=== PATIENT | male | born 1945 ===

== ENCOUNTER 2019-04-03 14:21 | Inpatient (IN) | payer MEDICARE ==
[~2019-04-03] VITALS: Ht 180.3 cm; Wt 89.8 kg
[2019-04-03] MEDS ORDERED: DEXTROSE 50% 50 ML DISP.SYRIN IV PRN (20:00)
[2019-04-03] MEDS ORDERED: POLYVINYL ALCOHOL OPHT DROPS 15 ML BOTTLE EACHEYE PRN (20:00)
[2019-04-03] MEDS ORDERED: ACET-2154 PO (20:33)
[2019-04-03] MEDS ORDERED: ASPI-869 PO (20:33)
[2019-04-03] MEDS ORDERED: ATOR80TA PO (20:33)
[2019-04-03] MEDS ORDERED: DOCU-141 PO (20:33)
[2019-04-03] MEDS ORDERED: GABA-532 PO (20:33)
[2019-04-03] MEDS ORDERED: MAGN400O6 PO (20:33)
[2019-04-03] MEDS ORDERED: FAMO-132 PO (20:33)
[2019-04-03] MEDS ORDERED: METO25TA6 PO (20:33)
[2019-04-03 20:35] VITALS: BP 138/100
[2019-04-03] MEDS ORDERED: INSULIN GLARGINE,HUM 300 UNITS/3 ML CARTRIDGE SQ SCH (21:00)
[2019-04-03] MEDS: INSULIN REGULAR, HUMAN 300 UNIT/3 ML VIAL SQ PRN (22:02)
[2019-04-03] MEDS: BLOOD SUGAR DIAGNOSTIC 1 EACH STRIP VI SCH (22:03)
--- NOTE | 2019-04-04 00:04 | NUR ---
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 AAOx3-4 able to answer questions appropriately. VSS. Skin intact. #20 gauge heplock on left forearm. Dr Grey ([facility]) aware of patient's admission as well Dr Jenkins. Fall precautions maintained. Call akers within reach. Siderails up for safety. Incontinent of bowel and bladder. Kept clean and dry. No BM noted this shift. Accucheck 289 with coverage given, patient also on Lantus insulin. Right facial droop noted with speech slightly slurred. Will monitor patient.
[2019-04-04] MEDS: OXYCODONE/APAP 5-325 MG TABLET PO PRN ×3 (01:44→20:32)
[2019-04-04] MEDS: LEVALBUTEROL HCL NEB 0.63 MG/3 ML NEBU NEB SCH ×5 (01:49→18:54)
--- NOTE | 2019-04-04 02:23 | NUR ---
patient very confused and disoriented. Screaming on and off. Explained to patient that he is here in the hospital for rehab. But patient keeps on yelling and saying he is going to work. Asked for pain med, Percocet 1tab given as order. Will monitor patient.
[2019-04-04 05:53] VITALS: BP 141/96
[2019-04-04] MEDS: BLOOD SUGAR DIAGNOSTIC 1 EACH STRIP VI SCH ×4 (06:36→20:33)
[2019-04-04] MEDS ORDERED: MAGNESIUM HYDROXIDE 30 ML LIQUID UDC PO PRN (07:15)
[2019-04-04] MEDS ORDERED: DOCUSATE SODIUM 100 MG CAPSULE PO PRN (07:15)
[2019-04-04] MEDS ORDERED: POLYVINYL ALCOHOL OPHT DROPS 15 ML BOTTLE EACHEYE PRN (07:27)
[2019-04-04 07:52] VITALS: BP 174/93
[2019-04-04] MEDS: INSULIN REGULAR, HUMAN 300 UNIT/3 ML VIAL SQ PRN ×3 (08:08→17:25)
[2019-04-04] MEDS ORDERED: METO-356 PO (08:39)
[2019-04-04] MEDS ORDERED: METOPROLOL TARTRATE 25 MG TABLET PO SCH (09:00)
[2019-04-04] MEDS: FAMOTIDINE 20 MG TABLET PO SCH (09:04)
[2019-04-04] MEDS: GABAPENTIN 100 MG CAPSULE PO SCH ×3 (09:04→17:26)
[2019-04-04] MEDS: ASPIRIN EC 325 MG TABLET.DR PO SCH (09:04)
[2019-04-04] MEDS: METOPROLOL SUCCINATE XL 25 MG TAB.SR.24H PO SCH ×2 (09:05→20:33)
[2019-04-04] MEDS: LISINOPRIL 10 MG TABLET PO SCH ×2 (13:59→20:33)
[2019-04-04 15:56] VITALS: BP 149/87
[2019-04-04] MEDS ORDERED: DEXTROSE 50% 50 ML DISP.SYRIN IV PRN (16:15)
--- NOTE | 2019-04-04 19:30 | NUR ---
Patient alert and oriented x 2-3. Speaks with a slur and has a right sided facial droop. C/O pain in lower back, will administer pain medication when able. IV in left hand. Will D/C due to patient no longer needing medication through site. New insulin lantus medication ordered, will administer. Call light and frequently used items within reach. Side rails up bilaterally for safety. Will continue to monitor.
--- NOTE | 2019-04-04 19:46 | NUR ---
Received patient in bed, Pt. A&O x4, able to express self with some speech difficulty noted. In No acute distress. Pt. on O2 NC at 2lpm with O2 saturation of 96%. NO complains of pain at this time. Noted with wheezing during shift, on routine breathing Tx as ordered. Patient noted with elevated BP and BS during shift and informed MD. Pt. also visited by Dr. Nowak and with an order to change Insulin to Moderate scale. Patient also placed on Lisinopril 10mg PO Q 12 hrs as ordered for HTN. Carried out order. Last B/P of 144/82. Patient refused thicken liquids, tolerated thin liquid during shift. No complains of pain at this time. Needs attended, safety measure in place and will continue with care. Endorsed to next shift and will continue with care.
[2019-04-04 19:53] VITALS: BP 125/91
[2019-04-04] MEDS: ATORVASTATIN 40 MG TABLET PO SCH (20:32)
[2019-04-04] MEDS: INSULIN REGULAR, HUMAN 300 UNITS/3 ML VIAL SQ PRN (20:34)
[2019-04-04] MEDS: INSULIN GLARGINE,HUM 300 UNITS/3 ML CARTRIDGE SQ SCH (20:42)
[2019-04-05] MEDS: LEVALBUTEROL HCL NEB 0.63 MG/3 ML NEBU NEB SCH ×4 (01:44→19:14)
[2019-04-05] MEDS: BLOOD SUGAR DIAGNOSTIC 1 EACH STRIP VI SCH ×4 (06:32→21:37)
[2019-04-05 06:40] VITALS: BP 109/60
[2019-04-05 07:28] LABS: CARBON DIOXIDE 24 mmol/L (21-32); CHLORIDE 99 mmol/L (98-107); CREATININE 2.1 mg/dL (0.6-1.3); GLUCOSE 177 mg/dL (74-106); MAGNESIUM 2.1 mg/dL (1.8-2.4); PHOSPHOROUS 4.5 mg/dL (2.5-4.9); POTASSIUM 4.4 mmol/L (3.5-5.1); UREA NITROGEN, BLOOD 35 mg/dL (7-18)
[2019-04-05 07:39] LABS: BASOPHILS # (AUTO) 0.1 K/uL (0.0-8.0); BASOPHILS % (AUTO) 0.4 % (0.0-2.0); EOSINOPHILS # (AUTO) 0.2 K/uL (0.0-0.7); EOSINOPHILS % (AUTO) 1.8 % (0.0-7.0); HEMATOCRIT 42.1 % (36.7-47.1); HEMOGLOBIN 13.7 g/dL (12.5-16.3); LYMPHOCYTES # (AUTO) 2.8 K/uL (20.0-40.0); LYMPHOCYTES % (AUTO) 21.9 % (20.5-51.5); MEAN CORPUSCULAR HEMOGLOBIN 31.7 uug (23.8-33.4); MEAN CORPUSCULAR HGB CONC 32 g/dL (32.5-36.3); MEAN CORPUSCULAR VOLUME 97.7 fL (73.0-96.2); MONOCYTES # (AUTO) 1.3 K/uL (2.0-10.0); MONOCYTES % (AUTO) 9.9 % (0.0-11.0); NEUTROPHILS # (AUTO) 8.5 K/uL (1.8-8.9); PLATELET COUNT (AUTO) 238 K/uL (152-348); RED BLOOD CELL COUNT(AUTO) 4.31 MIL/uL (4.06-5.63); WHITE BLOOD COUNT (AUTO) 12.9 K/uL (3.6-10.2)
--- NOTE | 2019-04-05 07:45 | NUR ---
Received patient awake in bed. AAOx3. In no acute distress. Audible wheezing noted. Routine breathing treatments ordered. Receiving 2L o2 via NC. Denies pain at this time. Safety measures implemented. Call light within reach. Will continue to monitor.
[2019-04-05] MEDS: INSULIN REGULAR, HUMAN 300 UNIT/3 ML VIAL SQ PRN ×3 (08:13→17:17)
[2019-04-05] MEDS: FAMOTIDINE 20 MG TABLET PO SCH (08:14)
[2019-04-05] MEDS: LISINOPRIL 10 MG TABLET PO SCH ×2 (08:14→21:39)
[2019-04-05] MEDS: ASPIRIN EC 325 MG TABLET.DR PO SCH (08:15)
[2019-04-05] MEDS: GABAPENTIN 100 MG CAPSULE PO SCH ×3 (08:16→17:15)
[2019-04-05] MEDS: METOPROLOL SUCCINATE XL 25 MG TAB.SR.24H PO SCH (08:51)
[2019-04-05 08:58] VITALS: BP 111/69
--- NOTE | 2019-04-05 16:07 | NUR ---
INTERDISCIPLINARY TEAM CONFERENCE
--- NOTE | 2019-04-05 18:21 | NUR ---
Patient compliant with care and medication. In no acute distress. All needs attended. Will endorse accordingly.
--- NOTE | 2019-04-05 19:50 | NUR ---
PATIENT LYING ON BED, WATCHING TV. NO DISCOMFORT NOTED. USING O2 VIA NC @ 2LPM . WILL CONTINUE TO MONITOR.
[2019-04-05 20:35] LABS: *BILIRUBIN,URIN NEGATIVE (NEGATIVE); *CLARITY,URINE CLEAR (CLEAR); *COLOR,URINE YELLOW (YELLOW); *KETONES,URINE NEGATIVE (NEGATIVE); *UROBILINOGEN,URINE 0.2 E.U./dl (NORMAL); LEUKOCYTE ESTERASE ,URINE NEGATIVE (NEGATIVE); NITRITE, URINE NEGATIVE (NEGATIVE); PH,URINE 5.5 (5.0-8.0); UGLUCOSE TRACE (NEGATIVE)
[2019-04-05 20:43] VITALS: BP 124/62
[2019-04-05 20:47] VITALS: BP 113/60
[2019-04-05 20:59] LABS: *BLOOD, URINE TRACE (NEGATIVE)
[2019-04-05 21:00] LABS: MUCUS,URINE FEW /LPF (0-FEW); RBC,URINE 0-3 /HPF (0-3); SQUAMOUS EPITHELIAL CELL,UR FEW /HPF (NONE SEEN); WBC,URINE 0-3 /HPF (0-3)
[2019-04-05] MEDS: CLONAZEPAM 0.5 MG TABLET PO SCH (21:34)
[2019-04-05] MEDS: ATORVASTATIN 40 MG TABLET PO SCH (21:35)
[2019-04-05] MEDS: INSULIN GLARGINE,HUM 300 UNITS/3 ML CARTRIDGE SQ SCH (21:37)
[2019-04-05] MEDS: INSULIN REGULAR, HUMAN 300 UNITS/3 ML VIAL SQ PRN (21:39)
[2019-04-06] MEDS: LEVALBUTEROL HCL NEB 0.63 MG/3 ML NEBU NEB SCH ×4 (01:30→20:03)
[2019-04-06 05:30] VITALS: BP 121/68
[2019-04-06] MEDS: BLOOD SUGAR DIAGNOSTIC 1 EACH STRIP VI SCH ×4 (06:44→20:26)
--- NOTE | 2019-04-06 06:45 | NUR ---
Patient sleeping on and off during the shift . Using o2 @ 2lpm via nc. No c/o pain or any discomfort .BS check done wit the result 168. kept the patient clean and dry
[2019-04-06 07:42] VITALS: BP 117/66
[2019-04-06] MEDS: INSULIN REGULAR, HUMAN 300 UNIT/3 ML VIAL SQ PRN ×3 (08:21→17:28)
[2019-04-06] MEDS: GABAPENTIN 100 MG CAPSULE PO SCH ×3 (08:25→17:23)
[2019-04-06] MEDS: ASPIRIN EC 325 MG TABLET.DR PO SCH (08:25)
[2019-04-06] MEDS: FAMOTIDINE 20 MG TABLET PO SCH (08:25)
[2019-04-06] MEDS: CLONAZEPAM 0.5 MG TABLET PO SCH ×3 (08:25→17:23)
[2019-04-06] MEDS: METOPROLOL SUCCINATE XL 25 MG TAB.SR.24H PO SCH (08:26)
[2019-04-06 09:33] LABS: THYROID STIMULATING HORMONE 0.607 mIU/mL (0.358-3.740)
--- NOTE | 2019-04-06 10:30 | NUR ---
INDIVIDUALIZE PLAN OF CARE
[2019-04-06] MEDS: LISINOPRIL 10 MG TABLET PO SCH ×2 (10:52→20:25)
[2019-04-06 15:59] VITALS: BP 112/67
--- NOTE | 2019-04-06 19:30 | NUR ---
Patient alert and oriented x 2-3. Speaks with a slur and has a right sided facial droop. New insulin Lantus medication order of 22 units, will administer. Call light and frequently used items within reach. Side rails up bilaterally for safety. Will continue to monitor.
[2019-04-06] MEDS: INSULIN GLARGINE,HUM 300 UNITS/3 ML CARTRIDGE SQ SCH (20:23)
[2019-04-06 20:24] VITALS: BP 103/60
[2019-04-06] MEDS: INSULIN REGULAR, HUMAN 300 UNITS/3 ML VIAL SQ PRN (20:24)
[2019-04-06] MEDS: ATORVASTATIN 40 MG TABLET PO SCH (20:26)
[2019-04-07] MEDS: LEVALBUTEROL HCL NEB 0.63 MG/3 ML NEBU NEB SCH ×4 (01:14→19:11)
[2019-04-07 05:21] VITALS: BP 125/62
[2019-04-07] MEDS: BLOOD SUGAR DIAGNOSTIC 1 EACH STRIP VI SCH ×4 (06:41→20:41)
[2019-04-07 08:00] VITALS: BP 113/66
[2019-04-07] MEDS: FAMOTIDINE 20 MG TABLET PO SCH (08:14)
[2019-04-07] MEDS: CLONAZEPAM 0.5 MG TABLET PO SCH ×3 (08:15→17:06)
[2019-04-07] MEDS: GABAPENTIN 100 MG CAPSULE PO SCH ×3 (08:15→17:06)
[2019-04-07] MEDS: ASPIRIN EC 325 MG TABLET.DR PO SCH (08:15)
[2019-04-07] MEDS: LISINOPRIL 10 MG TABLET PO SCH ×2 (08:16→20:37)
[2019-04-07] MEDS: METOPROLOL SUCCINATE XL 25 MG TAB.SR.24H PO SCH (08:16)
[2019-04-07] MEDS: INSULIN REGULAR, HUMAN 300 UNIT/3 ML VIAL SQ PRN ×3 (08:17→17:13)
--- NOTE | 2019-04-07 08:55 | NUR ---
Patient noted resting in bed, took all AM medications, 2 units of insulin given for blood sugar of 155, no changes in mental status, no complaints of pain at this time, no signs of distress noted, call light in reach, bed locked and in lowest position, all needs met at this time
[2019-04-07 16:00] VITALS: BP 119/62
--- NOTE | 2019-04-07 19:30 | NUR ---
Patient alert and oriented x 2-3. Speaks with a slur and has a right sided facial droop. No C/O pain or SOB at this time. Call light and frequently used items within reach. Side rails up bilaterally for safety. Will continue to monitor.
[2019-04-07] MEDS: INSULIN GLARGINE,HUM 300 UNITS/3 ML CARTRIDGE SQ SCH (20:28)
[2019-04-07] MEDS: ATORVASTATIN 40 MG TABLET PO SCH (20:36)
[2019-04-07] MEDS: INSULIN REGULAR, HUMAN 300 UNITS/3 ML VIAL SQ PRN (20:36)
[2019-04-07 20:54] VITALS: BP 125/78
[2019-04-08] MEDS: LEVALBUTEROL HCL NEB 0.63 MG/3 ML NEBU NEB SCH ×4 (01:55→18:50)
[2019-04-08 04:27] VITALS: BP 119/71
[2019-04-08] MEDS: BLOOD SUGAR DIAGNOSTIC 1 EACH STRIP VI SCH ×4 (06:30→20:32)
[2019-04-08 07:41] LABS: CARBON DIOXIDE 22 mmol/L (21-32); CHLORIDE 102 mmol/L (98-107); CREATININE 1.9 mg/dL (0.6-1.3); GLUCOSE 206 mg/dL (74-106); MAGNESIUM 2.6 mg/dL (1.8-2.4); POTASSIUM 4.9 mmol/L (3.5-5.1); UREA NITROGEN, BLOOD 48 mg/dL (7-18)
[2019-04-08 07:56] LABS: BASOPHILS # (AUTO) 0.1 K/uL (0.0-8.0); EOSINOPHILS # (AUTO) 0.2 K/uL (0.0-0.7)
[2019-04-08 08:07] LABS: BASOPHILS % (AUTO) 0.5 % (0.0-2.0); EOSINOPHILS % (AUTO) 1.5 % (0.0-7.0); LYMPHOCYTES # (AUTO) 2.4 K/uL (20.0-40.0); LYMPHOCYTES % (AUTO) 16.5 % (20.5-51.5); MEAN CORPUSCULAR HEMOGLOBIN 31.7 uug (23.8-33.4); MEAN CORPUSCULAR HGB CONC 32 g/dL (32.5-36.3); MONOCYTES # (AUTO) 1.6 K/uL (2.0-10.0); MONOCYTES % (AUTO) 10.7 % (0.0-11.0); NEUTROPHILS # (AUTO) 10.5 K/uL (1.8-8.9); NEUTROPHILS % (AUTO) 70.8 % (38.5-71.5); RED BLOOD CELL COUNT(AUTO) 4.08 MIL/uL (4.06-5.63); WHITE BLOOD COUNT (AUTO) 14.8 K/uL (3.6-10.2)
[2019-04-08 08:09] LABS: PLATELET COUNT (AUTO) 326 K/uL (152-348)
[2019-04-08] MEDS: FAMOTIDINE 20 MG TABLET PO SCH (08:54)
[2019-04-08] MEDS: METOPROLOL SUCCINATE XL 25 MG TAB.SR.24H PO SCH (08:55)
[2019-04-08 08:56] VITALS: BP 137/68
[2019-04-08] MEDS: LISINOPRIL 10 MG TABLET PO SCH (08:56)
[2019-04-08] MEDS: GABAPENTIN 100 MG CAPSULE PO SCH ×3 (08:56→16:55)
[2019-04-08] MEDS: ASPIRIN EC 325 MG TABLET.DR PO SCH (08:56)
[2019-04-08] MEDS: CLONAZEPAM 0.5 MG TABLET PO SCH (08:57)
[2019-04-08] MEDS: INSULIN REGULAR, HUMAN 300 UNIT/3 ML VIAL SQ PRN ×3 (09:02→17:19)
[2019-04-08 16:00] VITALS: BP 112/71
--- NOTE | 2019-04-08 17:50 | NUR ---
Pt received this morning sitting up in bed. Pt AAOx2-3, with slurred speech and right sided facial droop. Pt able to make needs known. Pt denies pain and no acute distress, or SOB. VS stable, HR elevated 129, likely due to coughing episodes. Pt O2 sat at 100% on 2L NC. Pt compliant with routine medications and cooperative with therapies as offered. All comfort and safety needs met. Pt transferred to bedside commode and back to bed without voiding or BM, max assist x4. Pt teaching provided on using bedpan for next BM urge. Bed in locked and lowest position, with side rails up x3, and bed alarm on. Call light and personal items placed within reach. Will continue to monitor and endorse to oncoming mobile paramedical examiner.
[2019-04-08 20:15] VITALS: BP 119/67
[2019-04-08] MEDS: ATORVASTATIN 40 MG TABLET PO SCH (20:24)
[2019-04-08] MEDS: INSULIN GLARGINE,HUM 300 UNITS/3 ML CARTRIDGE SQ SCH (20:33)
[2019-04-08] MEDS: INSULIN REGULAR, HUMAN 300 UNITS/3 ML VIAL SQ PRN (20:37)
[2019-04-08] MEDS: HYDROCODONE/APAP 5-325MG TABLET PO PRN (20:46)
[2019-04-09] MEDS ORDERED: QUETIAPINE FUMARATE 25 MG TABLET PO ONE
[2019-04-09] MEDS ORDERED: GUAIFENESIN SUGAR FREE 100 MG/5 ML UDC PO PRN (00:15)
[2019-04-09] MEDS: LEVALBUTEROL HCL NEB 0.63 MG/3 ML NEBU NEB SCH ×4 (01:30→19:21)
--- NOTE | 2019-04-09 01:53 | NUR ---
Pt refused HHN tx at this time. No distress noted. Nurse Maude ibarra.
[2019-04-09 05:15] VITALS: BP 135/75
[2019-04-09] MEDS: GUAIFENESIN SUGAR FREE 100 MG/5 ML UDC PO PRN ×3 (05:34→21:29)
--- NOTE | 2019-04-09 05:35 | NUR ---
PATIENT AWAKE IN BED. NON-PRODUCTIVE COUGH NOTED. PATIENT GIVEN ROBITUSSIN SUGAR-FREE 5ML PO PRN FOR COUGH. DENIES PAIN OR DISCOMFORT. SLEPT AT INTERVALS. BED ALARM ON. CALL LIGHT IN REACH. ALL NEEDS ATTENDED. WILL CONTINUE TO MONITOR AND ASSESS,
[2019-04-09] MEDS: BLOOD SUGAR DIAGNOSTIC 1 EACH STRIP VI SCH ×4 (06:38→21:27)
[2019-04-09 06:57] LABS: BASOPHILS # (AUTO) 0.1 K/uL (0.0-8.0); BASOPHILS % (AUTO) 0.5 % (0.0-2.0); EOSINOPHILS # (AUTO) 0.3 K/uL (0.0-0.7); HEMATOCRIT 39.6 % (36.7-47.1); HEMOGLOBIN 12.9 g/dL (12.5-16.3); LYMPHOCYTES % (AUTO) 15.7 % (20.5-51.5); MEAN CORPUSCULAR HGB CONC 33 g/dL (32.5-36.3); MEAN CORPUSCULAR VOLUME 97.8 fL (73.0-96.2); MONOCYTES # (AUTO) 1.4 K/uL (2.0-10.0); MONOCYTES % (AUTO) 10.8 % (0.0-11.0); NEUTROPHILS # (AUTO) 9.2 K/uL (1.8-8.9); PLATELET COUNT (AUTO) 332 K/uL (152-348); RED BLOOD CELL COUNT(AUTO) 4.05 MIL/uL (4.06-5.63)
[2019-04-09 06:58] LABS: ALANINE AMINOTRANSFERASE 34 U/L (16-63); ALKALINE PHOSPHATASE 144 U/L (50-136); ASPARTATE AMINOTRANSFERASE 40 U/L (15-37); BILIRUBIN,TOTAL 0.6 mg/dL (0.2-1.0); CARBON DIOXIDE 27 mmol/L (21-32); CHLORIDE 101 mmol/L (98-107); GLUCOSE 207 mg/dL (74-106); MAGNESIUM 2.4 mg/dL (1.8-2.4); PHOSPHOROUS 3.1 mg/dL (2.5-4.9); POTASSIUM 4.9 mmol/L (3.5-5.1); TOTAL PROTEIN, SERUM 7.6 g/dL (6.4-8.2); UREA NITROGEN, BLOOD 41 mg/dL (7-18)
[2019-04-09 07:52] VITALS: BP 127/81
[2019-04-09] MEDS: ASPIRIN EC 325 MG TABLET.DR PO SCH (08:37)
[2019-04-09] MEDS: FAMOTIDINE 20 MG TABLET PO SCH (08:37)
[2019-04-09] MEDS: VALSARTAN 160 MG TABLET PO SCH (08:38)
[2019-04-09] MEDS: GABAPENTIN 100 MG CAPSULE PO SCH ×3 (08:38→16:56)
[2019-04-09] MEDS: METOPROLOL SUCCINATE XL 25 MG TAB.SR.24H PO SCH (08:39)
[2019-04-09] MEDS: INSULIN REGULAR, HUMAN 300 UNIT/3 ML VIAL SQ PRN ×3 (08:45→17:43)
[2019-04-09 15:44] VITALS: BP 152/91
--- NOTE | 2019-04-09 18:59 | NUR ---
Pt received this morning, assessed. No acute distress, pain, or SOB noted. Pt is able to make needs known with slurred speech. Cough medicine administered per PRN orders. Swallow study completed. Pt seen by , will f/u. VSS, Pt 99% on RA. Pt slept in intervals throughout the day. Personal items and call light placed within reach, repositioned for comfort. Will continue to monitor and endorse.
[2019-04-09 19:44] VITALS: BP 138/79
[2019-04-09] MEDS: ATORVASTATIN 40 MG TABLET PO SCH (20:55)
[2019-04-09] MEDS: INSULIN GLARGINE,HUM 300 UNITS/3 ML CARTRIDGE SQ SCH (21:24)
[2019-04-09] MEDS: INSULIN REGULAR, HUMAN 300 UNITS/3 ML VIAL SQ PRN (21:25)
[2019-04-10] MEDS: LEVALBUTEROL HCL NEB 0.63 MG/3 ML NEBU NEB SCH ×4 (01:04→20:03)
[2019-04-10 04:52] VITALS: BP 134/84
[2019-04-10] MEDS: HYDROCODONE/APAP 5-325MG TABLET PO PRN ×3 (05:32→21:23)
[2019-04-10] MEDS: BLOOD SUGAR DIAGNOSTIC 1 EACH STRIP VI SCH ×4 (06:37→20:52)
[2019-04-10 08:00] VITALS: BP 123/73
[2019-04-10] MEDS: ASPIRIN EC 325 MG TABLET.DR PO SCH (08:40)
[2019-04-10] MEDS: FAMOTIDINE 20 MG TABLET PO SCH (08:40)
[2019-04-10] MEDS: GABAPENTIN 100 MG CAPSULE PO SCH ×3 (08:40→17:09)
[2019-04-10] MEDS: METOPROLOL SUCCINATE XL 25 MG TAB.SR.24H PO SCH (08:41)
[2019-04-10] MEDS: VALSARTAN 160 MG TABLET PO SCH (08:41)
[2019-04-10] MEDS: INSULIN REGULAR, HUMAN 300 UNIT/3 ML VIAL SQ PRN ×3 (08:46→17:21)
--- NOTE | 2019-04-10 09:56 | NUR ---
Received patient awake and alert and oriented x 3 in bed. No s/s acute distress notes. On RA with SpO2 of 97%, no SOB. Incontinent of B&B. Kept clean and dry at all times. Safety and comfort provided at all times. Call light within reached and will continue to monitor. All due medications administered as ordered and tolerated well with no ASE. No s/sx of hypo/hyperglycemia. On aspiration precaution, NTL at bedside. Continue plan of care. Will continue to monitor.
[2019-04-10 15:59] VITALS: BP 122/82
[2019-04-10 20:12] VITALS: BP 126/68
[2019-04-10] MEDS: ATORVASTATIN 40 MG TABLET PO SCH (20:52)
[2019-04-10] MEDS: INSULIN GLARGINE,HUM 300 UNITS/3 ML CARTRIDGE SQ SCH (20:53)
[2019-04-11] MEDS: LEVALBUTEROL HCL NEB 0.63 MG/3 ML NEBU NEB SCH ×4 (01:25→20:01)
[2019-04-11 04:36] VITALS: BP 138/76
[2019-04-11] MEDS: BLOOD SUGAR DIAGNOSTIC 1 EACH STRIP VI SCH ×4 (07:37→21:09)
[2019-04-11 07:44] VITALS: BP 138/83
[2019-04-11] MEDS: HYDROCODONE/APAP 5-325MG TABLET PO PRN ×2 (08:07→14:57)
[2019-04-11] MEDS: FAMOTIDINE 20 MG TABLET PO SCH (08:08)
[2019-04-11] MEDS: VALSARTAN 160 MG TABLET PO SCH (08:08)
[2019-04-11] MEDS: GABAPENTIN 100 MG CAPSULE PO SCH ×3 (08:09→17:17)
[2019-04-11] MEDS: METOPROLOL SUCCINATE XL 25 MG TAB.SR.24H PO SCH (08:09)
[2019-04-11] MEDS: ASPIRIN EC 325 MG TABLET.DR PO SCH (08:10)
[2019-04-11] MEDS: INSULIN REGULAR, HUMAN 300 UNIT/3 ML VIAL SQ PRN ×3 (08:22→17:21)
--- NOTE | 2019-04-11 11:40 | NUR ---
SBAR report received this morning. Pt resting in bed, breathing Tx provided by RT. Pt compliant with medications, insulin coverage 6 units for BS of 212, and cooperative with ST as offered. Pain 7/10 reported resolved with PRN pain medication administered per MD orders. Pt seen by MD, no new orders. Daughter visited at bedside shortly. Pt assisted to use urinal. Partial linen change, repositioned for comfort. Bed in locked and lowest position with side rails up x3 for safety, bed alarm on, personal items and call light placed within reach. Will continue to monitor.
[2019-04-11] MEDS: GUAIFENESIN SUGAR FREE 100 MG/5 ML UDC PO PRN ×2 (14:55→21:07)
[2019-04-11 16:00] VITALS: BP 105/57
[2019-04-11 19:46] VITALS: BP 117/67
[2019-04-11] MEDS: ATORVASTATIN 40 MG TABLET PO SCH (21:07)
[2019-04-11] MEDS: INSULIN GLARGINE,HUM 300 UNITS/3 ML CARTRIDGE SQ SCH (21:13)
[2019-04-12] MEDS: LEVALBUTEROL HCL NEB 0.63 MG/3 ML NEBU NEB SCH ×4 (00:32→19:14)
--- NOTE | 2019-04-12 02:22 | NUR ---
No change in Pt status. VSS. BS 112, no coverage required, scheduled Lantus administered as ordered. Pt able to make needs known. Pt compliant with routine medications. Cough medication administered per PRN orders. Call light and belongings placed within reach. Bed in locked, lowest position, with side rails up x2, and bed alarm on. All comfort needs attended to. Will continue to monitor for safety.
[2019-04-12] MEDS: GUAIFENESIN SUGAR FREE 100 MG/5 ML UDC PO PRN ×2 (04:07→20:19)
[2019-04-12] MEDS: ACETAMINOPHEN 325 MG TABLET PO PRN (04:12)
[2019-04-12 04:19] VITALS: BP 111/66
[2019-04-12] MEDS: BLOOD SUGAR DIAGNOSTIC 1 EACH STRIP VI SCH ×4 (06:58→20:25)
[2019-04-12 07:08] LABS: BASOPHILS # (AUTO) 0.1 K/uL (0.0-8.0); BASOPHILS % (AUTO) 0.5 % (0.0-2.0); EOSINOPHILS # (AUTO) 0.2 K/uL (0.0-0.7); HEMATOCRIT 37.4 % (36.7-47.1); HEMOGLOBIN 12.5 g/dL (12.5-16.3); LYMPHOCYTES # (AUTO) 2.2 K/uL (20.0-40.0); LYMPHOCYTES % (AUTO) 12.6 % (20.5-51.5); MEAN CORPUSCULAR HEMOGLOBIN 32.4 uug (23.8-33.4); MEAN CORPUSCULAR HGB CONC 34 g/dL (32.5-36.3); MEAN CORPUSCULAR VOLUME 96.5 fL (73.0-96.2); MONOCYTES # (AUTO) 1.2 K/uL (2.0-10.0); MONOCYTES % (AUTO) 6.9 % (0.0-11.0); NEUTROPHILS # (AUTO) 13.5 K/uL (1.8-8.9); PLATELET COUNT (AUTO) 403 K/uL (152-348); RED BLOOD CELL COUNT(AUTO) 3.87 MIL/uL (4.06-5.63)
[2019-04-12 07:15] LABS: ALANINE AMINOTRANSFERASE 29 U/L (16-63); ALKALINE PHOSPHATASE 149 U/L (50-136); ASPARTATE AMINOTRANSFERASE 31 U/L (15-37); BILIRUBIN,TOTAL 0.6 mg/dL (0.2-1.0); CARBON DIOXIDE 27 mmol/L (21-32); CHLORIDE 100 mmol/L (98-107); GLUCOSE 141 mg/dL (74-106); MAGNESIUM 2.2 mg/dL (1.8-2.4); PHOSPHOROUS 3.4 mg/dL (2.5-4.9); POTASSIUM 4.8 mmol/L (3.5-5.1); TOTAL PROTEIN, SERUM 7.5 g/dL (6.4-8.2); UREA NITROGEN, BLOOD 39 mg/dL (7-18)
[2019-04-12 07:21] LABS: WHITE BLOOD COUNT (AUTO) 17.1 K/uL (3.6-10.2)
[2019-04-12 07:50] VITALS: BP 97/65
[2019-04-12] MEDS: METOPROLOL SUCCINATE XL 25 MG TAB.SR.24H PO SCH (09:00)
[2019-04-12] MEDS: VALSARTAN 160 MG TABLET PO SCH (09:00)
[2019-04-12] MEDS: GABAPENTIN 100 MG CAPSULE PO SCH ×3 (09:54→17:06)
[2019-04-12] MEDS: ASPIRIN EC 325 MG TABLET.DR PO SCH (09:56)
[2019-04-12] MEDS: FAMOTIDINE 20 MG TABLET PO SCH (09:56)
[2019-04-12] MEDS: INSULIN REGULAR, HUMAN 300 UNIT/3 ML VIAL SQ PRN ×2 (12:46→17:19)
--- NOTE | 2019-04-12 14:40 | NUR ---
INTERDISCIPLINARY TEAM CONFERENCE
[2019-04-12 16:37] VITALS: BP 123/71
--- NOTE | 2019-04-12 20:00 | NUR ---
Patient A&Ox4, No acute distress; VS taken and stable. On accu checks as ordered. Pt. noted with WBC of 17.1. Dr. Hollins ordered Zithromax 250mg PO QD x 5 days[address] Placed ordered, endorsed to next shift. Needs met, safety measures in place, call light left at bed side and will continue with care.
[2019-04-12] MEDS: ATORVASTATIN 40 MG TABLET PO SCH (20:21)
[2019-04-12] MEDS: HYDROCODONE/APAP 5-325MG TABLET PO PRN (20:21)
[2019-04-12] MEDS: INSULIN REGULAR, HUMAN 300 UNITS/3 ML VIAL SQ PRN (20:27)
[2019-04-12] MEDS: INSULIN GLARGINE,HUM 300 UNITS/3 ML CARTRIDGE SQ SCH (20:30)
[2019-04-12] MEDS: AZITHROMYCIN 250 MG TABLET PO SCH (21:03)
[2019-04-12 21:39] VITALS: BP 115/73
[2019-04-13] MEDS: LEVALBUTEROL HCL NEB 0.63 MG/3 ML NEBU NEB SCH ×4 (01:56→18:27)
--- NOTE | 2019-04-13 04:31 | NUR ---
awake alert and oriented x4 needs attended. VSS kept comfortable. tolerated po meds well. Patient started on Zithromax 250mg given as ordered. No ill effects noted. [place] 1 tab given for back pain. Coughing on and off Robitussin given. Will monitor patient. Fall precautions maintained. Siderails up for safety. Voiding freely. No acute distress noted.
[2019-04-13 05:12] VITALS: BP 135/60
[2019-04-13] MEDS: BLOOD SUGAR DIAGNOSTIC 1 EACH STRIP VI SCH ×4 (06:32→21:08)
[2019-04-13] MEDS: HYDROCODONE/APAP 5-325MG TABLET PO PRN ×3 (06:37→22:11)
[2019-04-13 07:04] LABS: BASOPHILS # (AUTO) 0.1 K/uL (0.0-8.0); BASOPHILS % (AUTO) 0.6 % (0.0-2.0); EOSINOPHILS # (AUTO) 0.1 K/uL (0.0-0.7); HEMATOCRIT 37.5 % (36.7-47.1); HEMOGLOBIN 12.4 g/dL (12.5-16.3); LYMPHOCYTES # (AUTO) 1.9 K/uL (20.0-40.0); LYMPHOCYTES % (AUTO) 12.7 % (20.5-51.5); MEAN CORPUSCULAR HEMOGLOBIN 32.2 uug (23.8-33.4); MEAN CORPUSCULAR HGB CONC 33 g/dL (32.5-36.3); MEAN CORPUSCULAR VOLUME 97.8 fL (73.0-96.2); MONOCYTES # (AUTO) 1.3 K/uL (2.0-10.0); MONOCYTES % (AUTO) 8.9 % (0.0-11.0); NEUTROPHILS # (AUTO) 11.5 K/uL (1.8-8.9); NEUTROPHILS % (AUTO) 76.8 % (38.5-71.5); PLATELET COUNT (AUTO) 412 K/uL (152-348); RED BLOOD CELL COUNT(AUTO) 3.83 MIL/uL (4.06-5.63)
[2019-04-13 07:18] LABS: ALANINE AMINOTRANSFERASE 36 U/L (16-63); ALKALINE PHOSPHATASE 185 U/L (50-136); ASPARTATE AMINOTRANSFERASE 48 U/L (15-37); BILIRUBIN,TOTAL 0.5 mg/dL (0.2-1.0); CARBON DIOXIDE 26 mmol/L (21-32); CHLORIDE 95 mmol/L (98-107); CREATININE 2.1 mg/dL (0.6-1.3); GLUCOSE 223 mg/dL (74-106); MAGNESIUM 2.3 mg/dL (1.8-2.4); PHOSPHOROUS 3.2 mg/dL (2.5-4.9); POTASSIUM 5.5 mmol/L (3.5-5.1); TOTAL PROTEIN, SERUM 7.8 g/dL (6.4-8.2); UREA NITROGEN, BLOOD 37 mg/dL (7-18)
[2019-04-13 07:49] VITALS: BP 113/72
[2019-04-13] MEDS: INSULIN REGULAR, HUMAN 300 UNIT/3 ML VIAL SQ PRN ×2 (08:46→11:42)
[2019-04-13] MEDS: ASPIRIN EC 325 MG TABLET.DR PO SCH (08:47)
[2019-04-13] MEDS: GABAPENTIN 100 MG CAPSULE PO SCH ×3 (08:47→17:15)
[2019-04-13] MEDS: AZITHROMYCIN 250 MG TABLET PO SCH (08:47)
[2019-04-13] MEDS: METOPROLOL SUCCINATE XL 25 MG TAB.SR.24H PO SCH (08:48)
[2019-04-13] MEDS: FAMOTIDINE 20 MG TABLET PO SCH (08:49)
[2019-04-13] MEDS ORDERED: VALSARTAN 160 MG TABLET PO SCH (09:00)
[2019-04-13] MEDS: ACETAMINOPHEN 325 MG TABLET PO PRN (09:13)
[2019-04-13] MEDS ORDERED: SODIUM POLYSTYRENE SULFONATE 15 G/60 ML LIQUID UDC PO ONE (11:00)
--- NOTE | 2019-04-13 12:40 | NUR ---
Left message with paperhanger contractor provider for Ya Grey MD as patient family member requests to speak with provider prior to chest x-ray. Enrike Loo RN
--- NOTE | 2019-04-13 13:21 | NUR ---
Verbal order from Doctor Que to cancel chest x-ray. [place] Room Worker notified Rian in xray user does not have privileges to cancel order. Enrike Loo RN
[2019-04-13 15:38] VITALS: BP 109/56
--- NOTE | 2019-04-13 17:35 | NUR ---
Patient able to verbalize more sentences, however, words are not always in the correct order. The patient is seen working out on hand bike and leg bike in physical therapy. He is able to move his right arm with help of his the left arm. The patient may benefit from an overhead trapeze at some point. The patient has a non productive moist cough. He is being treated for the cough with nebulizers and by mouth antibiotics. The patient requests for assist with repositioning. Retrieval Specialist and DIGITAL RECRUITER assist patient to reposition as requested by family and patient. The patient has even unlabored breathing. Patient denies complaint of pain. Handoff report to night JOSUÉ. Enrike Loo RN
[2019-04-13 20:37] VITALS: BP 134/70
[2019-04-13] MEDS: INSULIN GLARGINE,HUM 300 UNITS/3 ML CARTRIDGE SQ SCH (21:12)
[2019-04-13] MEDS: INSULIN REGULAR, HUMAN 300 UNITS/3 ML VIAL SQ PRN (21:12)
[2019-04-13] MEDS: ATORVASTATIN 40 MG TABLET PO SCH (21:14)
[2019-04-13] MEDS: GUAIFENESIN SUGAR FREE 100 MG/5 ML UDC PO PRN (21:24)
--- NOTE | 2019-04-14 00:54 | NUR ---
unable to go home, requested to stay overnight for tonight, signed Hospital Visitor Extended Stay Agreement and agreed to abide the rules.
[2019-04-14] MEDS: LEVALBUTEROL HCL NEB 0.63 MG/3 ML NEBU NEB SCH ×4 (01:18→20:30)
[2019-04-14] MEDS: GUAIFENESIN SUGAR FREE 100 MG/5 ML UDC PO PRN ×2 (01:57→09:10)
[2019-04-14 05:20] VITALS: BP 124/72
[2019-04-14] MEDS: BLOOD SUGAR DIAGNOSTIC 1 EACH STRIP VI SCH ×4 (06:31→20:42)
--- NOTE | 2019-04-14 06:38 | NUR ---
Received patient in bed. AAO x3. Not in acute distress or SOB. Able to make needs known. On room air. Complained of headache, rated pain 6/10 in numeric scale. Narco 5-325 mg given and effective. Pain assessed and reassessed after pain medication. All due medication given and well tolerated. Accucheck @ 2100 BS: 200 covered by 3 units insulin based on sliding scale, Accucheck @ 0630 BS: 195. Had productive cough, Robitussin 5 ml administered. Physical assessment done. All needs attended promptly. Fall prevention observed. Safety measures maintained. Bed in low and lock position, alarm on, side rails up x2 for safety. Call light and frequently used items within reach. Continue to monitor and will endorse to the oncoming nurse accordingly.
[2019-04-14 07:38] LABS: BASOPHILS # (AUTO) 0.1 K/uL (0.0-8.0); EOSINOPHILS # (AUTO) 0.2 K/uL (0.0-0.7); EOSINOPHILS % (AUTO) 1.5 % (0.0-7.0); HEMATOCRIT 37.5 % (36.7-47.1); HEMOGLOBIN 12.3 g/dL (12.5-16.3); LYMPHOCYTES # (AUTO) 2.1 K/uL (20.0-40.0); LYMPHOCYTES % (AUTO) 14.1 % (20.5-51.5); MEAN CORPUSCULAR HEMOGLOBIN 31.9 uug (23.8-33.4); MEAN CORPUSCULAR HGB CONC 33 g/dL (32.5-36.3); MEAN CORPUSCULAR VOLUME 97.3 fL (73.0-96.2); MONOCYTES # (AUTO) 1.6 K/uL (2.0-10.0); MONOCYTES % (AUTO) 10.3 % (0.0-11.0); NEUTROPHILS % (AUTO) 73.1 % (38.5-71.5); PLATELET COUNT (AUTO) 438 K/uL (152-348); RED BLOOD CELL COUNT(AUTO) 3.85 MIL/uL (4.06-5.63)
[2019-04-14 07:42] LABS: CARBON DIOXIDE 29 mmol/L (21-32); CHLORIDE 101 mmol/L (98-107); GLUCOSE 227 mg/dL (74-106); MAGNESIUM 2.4 mg/dL (1.8-2.4); PHOSPHOROUS 3.4 mg/dL (2.5-4.9); POTASSIUM 4.9 mmol/L (3.5-5.1); UREA NITROGEN, BLOOD 34 mg/dL (7-18)
[2019-04-14] MEDS: GABAPENTIN 100 MG CAPSULE PO SCH ×3 (08:22→17:16)
[2019-04-14] MEDS: FAMOTIDINE 20 MG TABLET PO SCH (08:22)
[2019-04-14] MEDS: ASPIRIN EC 325 MG TABLET.DR PO SCH (08:22)
[2019-04-14] MEDS: METOPROLOL SUCCINATE XL 25 MG TAB.SR.24H PO SCH (08:23)
[2019-04-14] MEDS: AZITHROMYCIN 250 MG TABLET PO SCH (08:24)
[2019-04-14] MEDS: INSULIN REGULAR, HUMAN 300 UNIT/3 ML VIAL SQ PRN ×3 (08:29→18:02)
[2019-04-14 09:34] VITALS: BP 112/76
[2019-04-14] MEDS: HYDROCODONE/APAP 5-325MG TABLET PO PRN (10:37)
--- NOTE | 2019-04-14 12:39 | NUR ---
PATIENT BLOOD SUGAR 446, 15 UNITS OF INSULIN ADMINISTERED ORDERED, EDUCATION DONE TO AND TO PATIENT REGARDING HYPERGLYCEMIA, AND ABOUT DIET, NOTED BRINGING PANCAKES WITH REGULAR SYRUP IN [place] MORNING AND FEEDING HER (PATIENT), ALSO NOTED GIVING JUICES AND COFFEE WITH SUGAR. TEACHING DONE FOR DIET, PATIENT AND VERBALIZED UNDERSTANDING. WATCHED PATIENT DURING MEALS. NO ACUTE DISTRESS NOTED AT THIS TIME, PATIENT DENIED BLURRED VISION, DENIED HEADACHE, ALERT, ORIENTED X4, NO SOB, NO FRUITY SMELL FROM THE BREATH, CONTINUE TO MONITOR. Addendum: 04/14/19 at 1823 by PRETTY ISRAEL RN, RN MD DR GLORY CHO.
[2019-04-14] MEDS: HYDROCODONE/APAP 10-325 MG TABLET PO PRN (17:55)
[2019-04-14 18:19] VITALS: BP 100/66
--- NOTE | 2019-04-14 18:23 | NUR ---
PATIENT REQUESTED STRONGER PAIN MEDICATION FOR HIS BACK PAIN, WITH NEW ORDER FROM DR MCDONALD TO START HIM ON NOR[place] 10/325MG EVERY 4 HOURS NEEDED. CONTINUE TO MONITOR FOR PAIN, NO ACUTE DISTRESS NOTED, STILL NOTED WITH EPISODES OF COUGH, CONTINUE ON ZITHROMAX, NO ADVERSE REACTIONS NOTED, NO NAUSEA, NO VOMITING, NO RASHES, TOLERATED MEALS AND MEDS WELL, NO SIGNS OR SYMPTOMS OF ASPIRATION NOTED DURING MEDS OR MEALS.
--- NOTE | 2019-04-14 19:30 | NUR ---
Awake, in bed with HOB elevated, calm and pleasant at this time. at bedside. Denies any pain/discomforts at this time. NIH assessment done. No neurological changes noted. Safety measure and fall precaution maintained. Continue care as planned.
[2019-04-14] MEDS: ATORVASTATIN 40 MG TABLET PO SCH (20:39)
[2019-04-14] MEDS: INSULIN REGULAR, HUMAN 300 UNITS/3 ML VIAL SQ PRN (20:44)
[2019-04-14] MEDS: INSULIN GLARGINE,HUM 300 UNITS/3 ML CARTRIDGE SQ SCH (20:45)
[2019-04-14 21:02] VITALS: BP 112/65
--- NOTE | 2019-04-15 00:58 | NUR ---
unable to go home, requested to stay overnight for tonight, signed Hospital Visitor Extended Stay Agreement and agreed to abide the rules.
[2019-04-15] MEDS: LEVALBUTEROL HCL NEB 0.63 MG/3 ML NEBU NEB SCH ×4 (01:30→19:13)
[2019-04-15 04:30] VITALS: BP 106/64
[2019-04-15] MEDS: BLOOD SUGAR DIAGNOSTIC 1 EACH STRIP VI SCH ×4 (06:37→20:54)
--- NOTE | 2019-04-15 06:45 | NUR ---
Shift End Report: Slept good. remain at bedside. Patient been calm and cooperative with care. No complaint presented throughout the night. All needs attended and anticipated. No s/s of hypo/hyperglycemia. VS stable. No significant event reported. Continue current rehab plan of care.
[2019-04-15 07:35] LABS: BASOPHILS # (AUTO) 0.1 K/uL (0.0-8.0); BASOPHILS % (AUTO) 1.1 % (0.0-2.0); EOSINOPHILS # (AUTO) 0.2 K/uL (0.0-0.7); EOSINOPHILS % (AUTO) 1.7 % (0.0-7.0); LYMPHOCYTES # (AUTO) 2.1 K/uL (20.0-40.0); MEAN CORPUSCULAR HEMOGLOBIN 32.3 uug (23.8-33.4); MEAN CORPUSCULAR HGB CONC 34 g/dL (32.5-36.3); MEAN CORPUSCULAR VOLUME 96.5 fL (73.0-96.2); MONOCYTES # (AUTO) 1.2 K/uL (2.0-10.0); MONOCYTES % (AUTO) 9.9 % (0.0-11.0); NEUTROPHILS # (AUTO) 8.3 K/uL (1.8-8.9); NEUTROPHILS % (AUTO) 69.3 % (38.5-71.5); PLATELET COUNT (AUTO) 425 K/uL (152-348); RED BLOOD CELL COUNT(AUTO) 3.73 MIL/uL (4.06-5.63); WHITE BLOOD COUNT (AUTO) 11.9 K/uL (3.6-10.2)
[2019-04-15 07:47] LABS: CARBON DIOXIDE 28 mmol/L (21-32); CHLORIDE 99 mmol/L (98-107); CREATININE 1.9 mg/dL (0.6-1.3); GLUCOSE 163 mg/dL (74-106); MAGNESIUM 2.1 mg/dL (1.8-2.4); PHOSPHOROUS 3.8 mg/dL (2.5-4.9); POTASSIUM 4.2 mmol/L (3.5-5.1); UREA NITROGEN, BLOOD 30 mg/dL (7-18)
[2019-04-15 07:49] VITALS: BP 102/62
--- NOTE | 2019-04-15 08:02 | NUR ---
Patient noted resting in bed with eyes closed, no facial cues of pain at this time, no signs of distress noted, call light in reach, bed locked and in lowest position, all needs met at this time.
[2019-04-15] MEDS: GABAPENTIN 100 MG CAPSULE PO SCH (08:13)
[2019-04-15] MEDS: FAMOTIDINE 20 MG TABLET PO SCH (08:13)
[2019-04-15] MEDS: AZITHROMYCIN 250 MG TABLET PO SCH (08:13)
[2019-04-15] MEDS: ASPIRIN EC 325 MG TABLET.DR PO SCH (08:14)
[2019-04-15] MEDS: METOPROLOL SUCCINATE XL 25 MG TAB.SR.24H PO SCH (08:14)
[2019-04-15] MEDS: INSULIN REGULAR, HUMAN 300 UNIT/3 ML VIAL SQ PRN ×3 (08:18→17:09)
[2019-04-15] MEDS: HYDROCODONE/APAP 10-325 MG TABLET PO PRN (09:51)
[2019-04-15] MEDS ORDERED: GABAPENTIN 100 MG CAPSULE PO SCH (13:00)
[2019-04-15] MEDS: GABAPENTIN 300 MG CAPSULE PO SCH ×2 (13:46→17:03)
[2019-04-15 16:43] VITALS: BP 114/58
--- NOTE | 2019-04-15 18:42 | NUR ---
no changes this shift, able to tolerate thin liquids, will endorse patient to foundation drill operator helper nurse
--- NOTE | 2019-04-15 19:30 | NUR ---
Sleeping during initial rounds. No s/s of discomforts or respiratory distress noted. On O2 at 2L via NC saturating 98% at this time. HOB elevated. Safety measures and fall prevention maintained. Continue care as planned.
[2019-04-15] MEDS: ATORVASTATIN 40 MG TABLET PO SCH (20:46)
[2019-04-15] MEDS: INSULIN GLARGINE,HUM 300 UNITS/3 ML CARTRIDGE SQ SCH (20:55)
[2019-04-15] MEDS: INSULIN REGULAR, HUMAN 300 UNITS/3 ML VIAL SQ PRN (21:01)
[2019-04-15 21:05] VITALS: BP 132/84
[2019-04-16] MEDS: LEVALBUTEROL HCL NEB 0.63 MG/3 ML NEBU NEB SCH ×4 (01:05→19:18)
[2019-04-16] MEDS: HYDROCODONE/APAP 10-325 MG TABLET PO PRN ×2 (01:18→04:57)
[2019-04-16 04:37] VITALS: BP 124/58
--- NOTE | 2019-04-16 05:27 | NUR ---
Shift end report: VS stable. No s/s of hypo/hyperglycemia noted. No agitation, restlessness, cooperative with care. Medicated twice for generalized/back pain with relief. All needs attended and met. Safety measures and fall precaution maintained. No significant event reported. Continue current rehab plan of care.
[2019-04-16] MEDS: BLOOD SUGAR DIAGNOSTIC 1 EACH STRIP VI SCH ×4 (06:50→20:35)
[2019-04-16 07:36] VITALS: BP 101/60
[2019-04-16] MEDS: METOPROLOL SUCCINATE XL 25 MG TAB.SR.24H PO SCH (09:45)
[2019-04-16] MEDS: GABAPENTIN 300 MG CAPSULE PO SCH ×3 (09:45→16:56)
[2019-04-16] MEDS: FAMOTIDINE 20 MG TABLET PO SCH (09:45)
[2019-04-16] MEDS: ASPIRIN EC 325 MG TABLET.DR PO SCH (09:46)
[2019-04-16] MEDS: AZITHROMYCIN 250 MG TABLET PO SCH (09:46)
[2019-04-16] MEDS: INSULIN REGULAR, HUMAN 300 UNIT/3 ML VIAL SQ PRN ×2 (09:47→11:46)
--- NOTE | 2019-04-16 09:50 | NUR ---
Patient in bed, awake, alert, oriented x 3, on room air, not in any distress. He denies any pain or discomfort at this time. Due medications administered and patient tolerated well. Needs attended to promptly. Call light and frequently used items placed within reach.
[2019-04-16 16:23] VITALS: BP 115/72
--- NOTE | 2019-04-16 19:30 | NUR ---
Awake during initial rounds. HOB elevated. No s/s of respiratory distress. O2 off, saturation 97% at this time. Denies pain but blowing nose more often, Instructed patient proper disposal of infected waste. Trash bag provided at bedside. Afebrile. Continue care as planned.
[2019-04-16] MEDS: ATORVASTATIN 40 MG TABLET PO SCH (20:33)
[2019-04-16] MEDS: INSULIN GLARGINE,HUM 300 UNITS/3 ML CARTRIDGE SQ SCH (20:35)
[2019-04-16] MEDS: INSULIN REGULAR, HUMAN 300 UNITS/3 ML VIAL SQ PRN (20:37)
[2019-04-16 20:40] VITALS: BP 133/66
[2019-04-16] MEDS: ACETAMINOPHEN 325 MG TABLET PO PRN (21:35)
--- NOTE | 2019-04-16 21:36 | NUR ---
Complaining of headache, Tylenol given as needed and ordered. Will monitor.
[2019-04-17] MEDS: LEVALBUTEROL HCL NEB 0.63 MG/3 ML NEBU NEB SCH (00:44)
[2019-04-17] MEDS: HYDROCODONE/APAP 10-325 MG TABLET PO PRN ×3 (01:19→15:07)
[2019-04-17 04:52] VITALS: BP 129/60
[2019-04-17] MEDS: BLOOD SUGAR DIAGNOSTIC 1 EACH STRIP VI SCH ×4 (06:34→20:21)
--- NOTE | 2019-04-17 06:37 | NUR ---
Shift End Report. VS stable. On and off oxygen. O2 sat WNL. Slept poorly, constantly calling, eating, drinking. No s/s of hypo/hyperglycemia. All needs attended and met. Medicated twice with [place] with help. No significant changes reported. Continue current rehab plan of care.
[2019-04-17] MEDS: ALBUTEROL SULFATE 1.25 MG/3 ML NEBU NEB SCH ×3 (07:16→19:46)
[2019-04-17 07:49] VITALS: BP 130/70
[2019-04-17] MEDS: METOPROLOL SUCCINATE XL 25 MG TAB.SR.24H PO SCH (08:01)
[2019-04-17] MEDS: FAMOTIDINE 20 MG TABLET PO SCH (08:01)
[2019-04-17] MEDS: ASPIRIN EC 325 MG TABLET.DR PO SCH (08:01)
[2019-04-17] MEDS: GABAPENTIN 300 MG CAPSULE PO SCH ×3 (08:02→16:53)
[2019-04-17] MEDS: INSULIN REGULAR, HUMAN 300 UNIT/3 ML VIAL SQ PRN ×2 (08:04→16:52)
[2019-04-17 15:48] VITALS: BP 139/60
[2019-04-17 19:58] VITALS: BP 130/75
[2019-04-17] MEDS: ATORVASTATIN 40 MG TABLET PO SCH (20:19)
[2019-04-17] MEDS: INSULIN GLARGINE,HUM 300 UNITS/3 ML CARTRIDGE SQ SCH (20:23)
[2019-04-18] MEDS: ALBUTEROL SULFATE 1.25 MG/3 ML NEBU NEB SCH ×4 (00:30→19:39)
[2019-04-18] MEDS: HYDROCODONE/APAP 10-325 MG TABLET PO PRN ×4 (00:41→16:30)
[2019-04-18] MEDS: GUAIFENESIN SUGAR FREE 100 MG/5 ML UDC PO PRN ×2 (00:41→08:19)
--- NOTE | 2019-04-18 04:26 | NUR ---
awake alert and oriented. HOB up @ all times. needs attended. VSS no acute distress noted. complained of left sided of generalized pain , [place] 1 tab given as ordered. Coughing on and off. Robitussin given as well. Respiratory treatment given by therapist. Compliant with care and meds. Voiding freely in the urinal. Will monitor patient.
[2019-04-18 05:51] VITALS: BP 126/78
[2019-04-18] MEDS: BLOOD SUGAR DIAGNOSTIC 1 EACH STRIP VI SCH ×4 (06:30→20:33)
[2019-04-18] MEDS: INSULIN REGULAR, HUMAN 300 UNIT/3 ML VIAL SQ PRN ×3 (07:51→17:10)
[2019-04-18] MEDS: ASPIRIN EC 325 MG TABLET.DR PO SCH (08:10)
[2019-04-18] MEDS: GABAPENTIN 300 MG CAPSULE PO SCH ×3 (08:10→17:45)
[2019-04-18] MEDS: FAMOTIDINE 20 MG TABLET PO SCH (08:10)
[2019-04-18] MEDS: METOPROLOL SUCCINATE XL 25 MG TAB.SR.24H PO SCH (08:11)
[2019-04-18 08:13] VITALS: BP 107/72
--- NOTE | 2019-04-18 16:09 | NUR ---
PATIENT IS ALERT, ORIENTED X4, VERBALLY RESPONSIVE, NO SOB, RESP EVEN NONLABORED,SKIN WARM AND DRY TO TOUCH, RIGHT SIDED WEAKNESS, NO DISTRESS NOTED, PATIENT REQUESTED IF HE CAN SOAK HIS FEET IN THE ICE FOR BURNING SENSATIONS, CONTACTED DR MCDONALD, PER DR MCDONALD PATIENT CAN HAVE ICE PACK, TEACHING DONE TO PATIENT AND REGARDING ICE PACK, SHOULD NOT BE MORE THAN 15 MINUTES AT TIME, IN ORDER TO KEEP GOOD BLOOD SUPPLY TO THE FEET, PATIENT AND VERBALIZED UNDERSTANDING OF IT.
[2019-04-18 18:07] VITALS: BP 110/62
--- NOTE | 2019-04-18 19:30 | NUR ---
Patient alert and oriented x 3-4. Speaks with a slur and has a right sided facial droop. C/O pain in legs at time of assessment. No SOB at this time. Call light and frequently used items within reach. Side rails up bilaterally for safety. Will continue to monitor.
[2019-04-18 19:37] VITALS: BP 127/76
[2019-04-18] MEDS: INSULIN GLARGINE,HUM 300 UNITS/3 ML CARTRIDGE SQ SCH (20:34)
[2019-04-18] MEDS: ATORVASTATIN 40 MG TABLET PO SCH (20:34)
[2019-04-18] MEDS: INSULIN REGULAR, HUMAN 300 UNITS/3 ML VIAL SQ PRN (20:40)
[2019-04-19] MEDS: ALBUTEROL SULFATE 1.25 MG/3 ML NEBU NEB SCH ×4 (01:01→20:03)
[2019-04-19] MEDS: HYDROCODONE/APAP 10-325 MG TABLET PO PRN ×2 (01:52→20:04)
[2019-04-19 06:28] VITALS: BP 140/77
[2019-04-19] MEDS: BLOOD SUGAR DIAGNOSTIC 1 EACH STRIP VI SCH ×4 (06:31→20:16)
[2019-04-19 08:00] VITALS: BP 129/66
[2019-04-19] MEDS: INSULIN REGULAR, HUMAN 300 UNIT/3 ML VIAL SQ PRN ×3 (08:04→17:32)
[2019-04-19] MEDS: METOPROLOL SUCCINATE XL 25 MG TAB.SR.24H PO SCH (09:20)
[2019-04-19] MEDS: GABAPENTIN 300 MG CAPSULE PO SCH ×3 (09:21→17:33)
[2019-04-19] MEDS: ASPIRIN EC 325 MG TABLET.DR PO SCH (09:21)
[2019-04-19] MEDS: FAMOTIDINE 20 MG TABLET PO SCH (09:21)
--- NOTE | 2019-04-19 13:31 | NUR ---
INTERDISCIPLINARY TEAM CONFERENCE
--- NOTE | 2019-04-19 15:07 | NUR ---
Patient is alert and oriented x3. Able to express needs with slurred speech at times. In No acute distress at this time. On routine breathing treatment as scheduled. Vital sing taken and stable for patient. Due medications administered as ordered and scheduled and tolerated well. Monitored closely. Needs attended, call light left at bed side and will continue with care.
[2019-04-19 18:00] VITALS: BP 132/88
--- NOTE | 2019-04-19 19:08 | NUR ---
Accu check done insulin administered per sliding scale. patient ate 80% of dinner. VS taken and stable. Needs met. Pt. sleeping at this time with HOB elevated, call light left at bed side and will continue with care.
[2019-04-19 19:45] VITALS: BP 125/70
--- NOTE | 2019-04-19 19:45 | NUR ---
Patient received in bed, AAO x3. Not in acute distress or SOB. Able to make needs known. On room air. Complained of headache. Physical assessment done. Fall prevention observed. Safety measures maintained. Bed in low and lock position, alarm on, side rails up x2 for safety. Call light and frequently used items within reach. Continue to monitor.
[2019-04-19] MEDS: ATORVASTATIN 40 MG TABLET PO SCH (20:03)
[2019-04-19] MEDS: INSULIN REGULAR, HUMAN 300 UNITS/3 ML VIAL SQ PRN (20:11)
[2019-04-19] MEDS: INSULIN GLARGINE,HUM 300 UNITS/3 ML CARTRIDGE SQ SCH (20:12)
[2019-04-20] MEDS: ALBUTEROL SULFATE 1.25 MG/3 ML NEBU NEB SCH ×4 (00:30→19:15)
[2019-04-20] MEDS: GUAIFENESIN SUGAR FREE 100 MG/5 ML UDC PO PRN ×3 (00:46→22:54)
[2019-04-20] MEDS: HYDROCODONE/APAP 10-325 MG TABLET PO PRN ×4 (00:46→22:54)
[2019-04-20 06:04] VITALS: BP 120/54
--- NOTE | 2019-04-20 06:11 | NUR ---
Patient was stable last night, but onle had 3 hours sleep. Not in acute distress or SOB. Constantly calling. Able to make needs known. On room air. VS checked and stable. Constantly calling. Complained of headache and pain in left side of the body, rated pain 7/10 in numeric scale. Narco 5-325 mg given two times and effective. Turned and repositioned. All linens changed, keep him clean and dry. Pain assessed and reassessed after pain medication. All due medication given and well tolerated. Accucheck @ 2100 BS: 224 covered by 3 units insulin based on sliding scale. Had productive cough, Robitussin 5 ml administered. Physical assessment done. All needs attended promptly. Fall prevention observed. Safety measures maintained. Bed in low and lock position, alarm on, side rails up x2 for safety. Call light and frequently used items within reach. Continue to monitor and will endorse to the oncoming nurse accordingly.
[2019-04-20] MEDS: BLOOD SUGAR DIAGNOSTIC 1 EACH STRIP VI SCH ×4 (06:58→21:26)
[2019-04-20] MEDS: INSULIN REGULAR, HUMAN 300 UNIT/3 ML VIAL SQ PRN ×3 (08:05→16:52)
[2019-04-20] MEDS: GABAPENTIN 300 MG CAPSULE PO SCH ×3 (08:07→16:37)
[2019-04-20] MEDS: FAMOTIDINE 20 MG TABLET PO SCH (08:07)
[2019-04-20] MEDS: ASPIRIN EC 325 MG TABLET.DR PO SCH (08:07)
[2019-04-20] MEDS: METOPROLOL SUCCINATE XL 25 MG TAB.SR.24H PO SCH (08:08)
--- NOTE | 2019-04-20 09:16 | NUR ---
Patient noted resting in bed, complaints of pain, [place] 10mg given for lower leg pain, took all AM medications, no signs of distress noted, call light in reach, bed locked and in lowest position, all needs met
[2019-04-20 14:57] VITALS: BP 122/72
[2019-04-20 19:35] VITALS: BP 116/78
--- NOTE | 2019-04-20 19:35 | NUR ---
Patient received in bed, AAO x3. Not in acute distress or SOB. Able to make needs known. On room air. Pain assessment done. Physical assessment done. Patient has productive cough; thin, clear/white mucus. Fall prevention observed. Safety measures maintained. Bed in low and lock position, alarm on, side rails up x2 for safety. Call light and frequently used items within reach. Will continue to monitor and give care.
[2019-04-20] MEDS: ATORVASTATIN 40 MG TABLET PO SCH (21:25)
[2019-04-20] MEDS: INSULIN GLARGINE,HUM 300 UNITS/3 ML CARTRIDGE SQ SCH (21:31)
[2019-04-20] MEDS: INSULIN REGULAR, HUMAN 300 UNITS/3 ML VIAL SQ PRN (21:32)
[2019-04-21] MEDS: ALBUTEROL SULFATE 1.25 MG/3 ML NEBU NEB SCH ×4 (00:54→19:57)
[2019-04-21 04:00] VITALS: BP 120/68
[2019-04-21] MEDS: BLOOD SUGAR DIAGNOSTIC 1 EACH STRIP VI SCH ×4 (06:57→20:28)
--- NOTE | 2019-04-21 07:26 | NUR ---
All needs met and anticipated. No signs and symptoms of distress. Slept on and off last night. Pain assessed and medicated accordingly. Pt. is on room air; tolerating well. Endorsed.
[2019-04-21 08:00] VITALS: BP 120/72
[2019-04-21] MEDS: GABAPENTIN 300 MG CAPSULE PO SCH ×3 (08:15→16:15)
[2019-04-21] MEDS: FAMOTIDINE 20 MG TABLET PO SCH (08:15)
[2019-04-21] MEDS: METOPROLOL SUCCINATE XL 25 MG TAB.SR.24H PO SCH (08:16)
[2019-04-21] MEDS: HYDROCODONE/APAP 10-325 MG TABLET PO PRN ×4 (08:16→20:19)
[2019-04-21] MEDS: ASPIRIN EC 325 MG TABLET.DR PO SCH (08:17)
[2019-04-21] MEDS: INSULIN REGULAR, HUMAN 300 UNIT/3 ML VIAL SQ PRN ×3 (08:24→16:25)
[2019-04-21] MEDS: GUAIFENESIN SUGAR FREE 100 MG/5 ML UDC PO PRN ×2 (10:41→20:48)
--- NOTE | 2019-04-21 11:17 | NUR ---
Patient noted resting in bed, complaints of pain 01/26, [place] 10mg given for lower leg pain, took all AM medications, no signs of distress noted, call light in reach, bed locked and in lowest position, all needs met
[2019-04-21 16:50] VITALS: BP 113/66
[2019-04-21] MEDS: ATORVASTATIN 40 MG TABLET PO SCH (20:18)
[2019-04-21] MEDS: INSULIN REGULAR, HUMAN 300 UNITS/3 ML VIAL SQ PRN (20:25)
[2019-04-21] MEDS: INSULIN GLARGINE,HUM 300 UNITS/3 ML CARTRIDGE SQ SCH (20:26)
[2019-04-21 20:32] VITALS: BP 121/60
[2019-04-22] MEDS: ALBUTEROL SULFATE 1.25 MG/3 ML NEBU NEB SCH ×4 (01:12→19:36)
--- NOTE | 2019-04-22 04:40 | NUR ---
Received patient in bed. AAO x3. Not in acute distress or SOB. Able to make needs known. On room air. Complained of pain in left side of the body, rated pain 7/10 in numeric scale. Narco 10-325 mg given and effective. Pain assessed and reassessed after pain medication. All due medication given and well tolerated. Accucheck @ 2100 BS:145 covered by 2 units insulin based on sliding scale. Had productive cough, Robitussin 5 ml administered. Physical assessment done. All needs attended promptly. Fall prevention observed. Safety measures maintained. Bed in low and lock position, alarm on, side rails up x2 for safety. Call light and frequently used items within reach. Continue to monitor and will endorse to the oncoming nurse accordingly.
[2019-04-22 05:35] VITALS: BP 101/54
[2019-04-22] MEDS: HYDROCODONE/APAP 10-325 MG TABLET PO PRN ×4 (06:12→20:57)
[2019-04-22] MEDS: BLOOD SUGAR DIAGNOSTIC 1 EACH STRIP VI SCH ×4 (06:32→20:50)
[2019-04-22 07:56] VITALS: BP 115/65
[2019-04-22] MEDS: ASPIRIN EC 325 MG TABLET.DR PO SCH (08:16)
[2019-04-22] MEDS: GABAPENTIN 300 MG CAPSULE PO SCH ×3 (08:16→16:18)
[2019-04-22] MEDS: FAMOTIDINE 20 MG TABLET PO SCH (08:17)
[2019-04-22] MEDS: METOPROLOL SUCCINATE XL 25 MG TAB.SR.24H PO SCH (08:17)
[2019-04-22] MEDS: INSULIN REGULAR, HUMAN 300 UNIT/3 ML VIAL SQ PRN ×3 (08:22→16:30)
[2019-04-22 15:41] VITALS: BP 116/63
--- NOTE | 2019-04-22 15:49 | NUR ---
Social Work Note Spoke with , Valeria, who requested assistance with [employer] application from Ronan Santos RN case manager. Advised Valeria that Martina Solano assists with this. This technical document writer provided the with Martina's number and left a message for Martina to call the on [phone]. seemed very satisfied with this plan and will call back with any concerns. This technical document writer provided her desk number since requested this.
[2019-04-22] MEDS: GUAIFENESIN SUGAR FREE 100 MG/5 ML UDC PO PRN (16:19)
--- NOTE | 2019-04-22 19:35 | NUR ---
Awake during initial rounds. HOB elevated. No s/s of respiratory distress. Watching TV quietly. Denies any pain/discomforts at this time. Continue plan of care.
[2019-04-22 20:11] VITALS: BP 126/62
[2019-04-22] MEDS: ATORVASTATIN 40 MG TABLET PO SCH (20:47)
[2019-04-22] MEDS: INSULIN REGULAR, HUMAN 300 UNITS/3 ML VIAL SQ PRN (20:52)
[2019-04-22] MEDS: INSULIN GLARGINE,HUM 300 UNITS/3 ML CARTRIDGE SQ SCH (20:53)
[2019-04-23] MEDS: ALBUTEROL SULFATE 1.25 MG/3 ML NEBU NEB SCH ×4 (01:13→18:55)
[2019-04-23] MEDS: HYDROCODONE/APAP 10-325 MG TABLET PO PRN ×3 (02:08→14:27)
[2019-04-23 05:45] VITALS: BP 114/60
--- NOTE | 2019-04-23 05:55 | NUR ---
Shift End Report: Slept fairly. Constantly calling/yelling for water, food, etc.etc. Productive cough noted but refused cough medications offered. Encouraged good oral hygiene and proper disposal of infectious waste. Patient very inpatient and uncooperative. Turned and repositioned for comfort. Medicated twice for complaint of back pain with help. Instructed patient proper body alignment to lessen back pain. All needs attended and anticipated. Continue current rehab plan of care.
[2019-04-23] MEDS: BLOOD SUGAR DIAGNOSTIC 1 EACH STRIP VI SCH ×4 (06:56→21:24)
[2019-04-23 07:30] VITALS: BP 127/61
[2019-04-23] MEDS: ASPIRIN EC 325 MG TABLET.DR PO SCH (08:40)
[2019-04-23] MEDS: FAMOTIDINE 20 MG TABLET PO SCH (08:41)
[2019-04-23] MEDS: METOPROLOL SUCCINATE XL 25 MG TAB.SR.24H PO SCH (08:41)
[2019-04-23] MEDS: GABAPENTIN 300 MG CAPSULE PO SCH ×3 (08:41→16:43)
[2019-04-23] MEDS: INSULIN REGULAR, HUMAN 300 UNIT/3 ML VIAL SQ PRN ×3 (08:48→16:44)
[2019-04-23 16:00] VITALS: BP 128/62
--- NOTE | 2019-04-23 17:58 | NUR ---
Patient complained that he wasn't receiving certain food items that he had ordered. His diet rx was reviewed with him, which he stated that he understood. He reported that he was receiving enough food and large enough portions. Kitchen staff will continue to assist with menus. Addendum: 04/23/19 at [address] Amended: Links added.
--- NOTE | 2019-04-23 19:35 | NUR ---
Sleeping comfortably during initial rounds. No s/s of pain/discomforts noted at this time. Safety measure and fall prevention maintained. Continue care as planned.
[2019-04-23 20:24] VITALS: BP 130/74
[2019-04-23] MEDS: ATORVASTATIN 40 MG TABLET PO SCH (21:22)
[2019-04-23] MEDS: INSULIN REGULAR, HUMAN 300 UNITS/3 ML VIAL SQ PRN (21:25)
[2019-04-23] MEDS: INSULIN GLARGINE,HUM 300 UNITS/3 ML CARTRIDGE SQ SCH (21:26)
[2019-04-23 22:18] LABS: CARBON DIOXIDE 30 mmol/L (21-32); CHLORIDE 93 mmol/L (98-107); CREATININE 2.3 mg/dL (0.6-1.3); GLUCOSE 285 mg/dL (74-106); UREA NITROGEN, BLOOD 31 mg/dL (7-18)
[2019-04-24] MEDS: ALBUTEROL SULFATE 1.25 MG/3 ML NEBU NEB SCH ×4 (01:00→20:10)
[2019-04-24 04:56] VITALS: BP 100/71
--- NOTE | 2019-04-24 06:25 | NUR ---
Shift End Report: Vs stable. Sleep good. No complaint of pain presented throughout the night. No agitation. restlessness and combativeness presented. All needs attended and met. No s/s of hypo/hyperglycemia noted.. No significant event reported all night. Continue current rehab plan of care
[2019-04-24] MEDS: BLOOD SUGAR DIAGNOSTIC 1 EACH STRIP VI SCH ×4 (07:22→20:43)
[2019-04-24 07:37] LABS: BASOPHILS % (AUTO) 0.4 % (0.0-2.0); EOSINOPHILS # (AUTO) 0.4 K/uL (0.0-0.7); EOSINOPHILS % (AUTO) 4.2 % (0.0-7.0); HEMATOCRIT 37.2 % (36.7-47.1); HEMOGLOBIN 12.2 g/dL (12.5-16.3); LYMPHOCYTES # (AUTO) 1.8 K/uL (20.0-40.0); LYMPHOCYTES % (AUTO) 20.7 % (20.5-51.5); MEAN CORPUSCULAR HEMOGLOBIN 31.5 uug (23.8-33.4); MEAN CORPUSCULAR HGB CONC 33 g/dL (32.5-36.3); MEAN CORPUSCULAR VOLUME 95.5 fL (73.0-96.2); MONOCYTES # (AUTO) 0.9 K/uL (2.0-10.0); NEUTROPHILS # (AUTO) 5.5 K/uL (1.8-8.9); NEUTROPHILS % (AUTO) 64.7 % (38.5-71.5); PLATELET COUNT (AUTO) 411 K/uL (152-348); RED BLOOD CELL COUNT(AUTO) 3.89 MIL/uL (4.06-5.63); WHITE BLOOD COUNT (AUTO) 8.6 K/uL (3.6-10.2)
[2019-04-24 08:06] VITALS: BP 103/65
[2019-04-24] MEDS: FAMOTIDINE 20 MG TABLET PO SCH (08:13)
[2019-04-24] MEDS: ASPIRIN EC 325 MG TABLET.DR PO SCH (08:13)
[2019-04-24] MEDS: METOPROLOL SUCCINATE XL 25 MG TAB.SR.24H PO SCH (08:13)
[2019-04-24] MEDS: GABAPENTIN 300 MG CAPSULE PO SCH ×3 (08:13→16:58)
[2019-04-24] MEDS: HYDROCODONE/APAP 10-325 MG TABLET PO PRN ×3 (08:15→16:58)
[2019-04-24] MEDS: INSULIN REGULAR, HUMAN 300 UNIT/3 ML VIAL SQ PRN ×3 (08:28→17:13)
--- NOTE | 2019-04-24 09:40 | NUR ---
TEACHING DONE TO RESTRICT FLUIDS TO THE PATIENT BECAUSE OF LOW SODIUM, MD TEJEDA AWARE, CONTINUE TO MONITOR, NO DISTRESS NOTED. PATIENT IS ALERT, ORIENTED X4, NOTED WITH TEARS, AND VERBALIZED CONCERNS ABOUT HIS INSURANCE, AND MONEY, REASSURED, OFFERED PATIENT IF HE WOULD LIKE TO SEE PSYCHOLOGIST, OR PSYCHATRIC, PATIENT REFUSED, ENCOURAGED TO VERBALIZE THE FEELING, SPOKE TO PATIENT IN LENGTH TO COMFORT THE PATIENT. Addendum: 04/24/19 at 1310 by PRETTY ISRAEL RN, RN PATIENT PLACED ON 1300ML FLUID RESTRICTION PER
--- NOTE | 2019-04-24 13:11 | NUR ---
PATIENT IS PLACED ON 1300ML FLUID RESTRICTION PER MD BECAUSE OF HYPONATREMIA, PATIENT AND VERBALIZED THE UNDERSTANDING OF IT.
--- NOTE | 2019-04-24 14:32 | NUR ---
pt not in room
[2019-04-24 15:18] VITALS: BP 107/68
--- NOTE | 2019-04-24 15:33 | NUR ---
PATIENT IS ALERT, ORIENTED X4, NO SOB, RESP EVEN NONLABORED,SKIN WARM AND DRY TO TOUCH, NO DISTRESS NOTED, PATIENT IS VERY NEEDY AND ATTENTION SEEKING. MAKES FREQUENT CALLS TO THE STATION EVEN JUST HELPED. FOR EXAMPLE, CALLS MULTIPLE TIMES TO STATION TO DIAL THE NUMBER FOR HIS , FOR ICE CHIPS EVEN ITS JUST REPLACED AND EXPLAINED TO PATIENT ABOUT FLUIDS RESTRICTIONS, CALLS FREQUENTLY TO CHANGE HIS MENU, ONLY WANTS TO EAT [place], NONCOMPLIANT WITH DIET RECOMMENDATIONS, EXPLAINED RISKS AND BENEFITS, TEACHING DONE FOR DIET RECOMMENDATION, VERBALIZED UNDERSTANDING BUT DOES NOT WANT TO FOLLOW THE RECOMMENDATIONS. RIPS OF HIS DIAPER AND REMOVES CLOTHES. TRIED TO FIXED MANY TIMES, REPOSITIONED AND KEPT COMFORTABLE. ALL NEEDS ATTENDED TAMELY, ENCOURAGED PATIENT TO USE SPIROMETER 10 TIMES EVERY HOUR. CONTINUE TO MONITOR
--- NOTE | 2019-04-24 19:35 | NUR ---
Sleeping during initial rounds. No s/s of respiratory distress noted. No s/s of hypo/hyperglycemia. Fluid restriction maintained. Safety measures and fall prevention maintained. Continue care as planned.
[2019-04-24] MEDS: ATORVASTATIN 40 MG TABLET PO SCH (20:37)
[2019-04-24] MEDS: ACETAMINOPHEN 325 MG TABLET PO PRN (20:37)
[2019-04-24] MEDS: INSULIN REGULAR, HUMAN 300 UNITS/3 ML VIAL SQ PRN (20:44)
[2019-04-24] MEDS: INSULIN GLARGINE,HUM 300 UNITS/3 ML CARTRIDGE SQ SCH (20:45)
[2019-04-24 21:18] VITALS: BP 123/68
[2019-04-25] MEDS: ALBUTEROL SULFATE 1.25 MG/3 ML NEBU NEB SCH ×4 (01:18→19:05)
[2019-04-25] MEDS: HYDROCODONE/APAP 10-325 MG TABLET PO PRN ×4 (03:46→20:26)
--- NOTE | 2019-04-25 05:31 | NUR ---
Shift End Report: VS stable. Slept fairly. No s/s of hypo/hyperglycemia. Remain very needy and inpatient. Medicated once for low back pain and once for headache with relief. . All needs attended and met. Continue current rehab plan of care.
[2019-04-25 05:47] VITALS: BP 105/61
[2019-04-25] MEDS: BLOOD SUGAR DIAGNOSTIC 1 EACH STRIP VI SCH ×4 (06:42→20:26)
[2019-04-25 07:25] LABS: CARBON DIOXIDE 25 mmol/L (21-32); CHLORIDE 101 mmol/L (98-107); CREATININE 2.3 mg/dL (0.6-1.3); GLUCOSE 206 mg/dL (74-106); MAGNESIUM 2.2 mg/dL (1.8-2.4); POTASSIUM 4.8 mmol/L (3.5-5.1); UREA NITROGEN, BLOOD 33 mg/dL (7-18)
[2019-04-25 07:34] LABS: THYROID STIMULATING HORMONE 1.091 mIU/mL (0.358-3.740)
[2019-04-25 07:54] VITALS: BP 107/61
[2019-04-25] MEDS: ASPIRIN EC 325 MG TABLET.DR PO SCH (08:19)
[2019-04-25] MEDS: FAMOTIDINE 20 MG TABLET PO SCH (08:19)
[2019-04-25] MEDS: GABAPENTIN 300 MG CAPSULE PO SCH ×3 (08:19→16:36)
[2019-04-25] MEDS: INSULIN REGULAR, HUMAN 300 UNIT/3 ML VIAL SQ PRN ×3 (08:19→16:37)
[2019-04-25] MEDS: METOPROLOL SUCCINATE XL 25 MG TAB.SR.24H PO SCH (08:20)
--- NOTE | 2019-04-25 08:30 | NUR ---
Patient awake, alert, oriented x 3 not in any distress, on room air. No complain of any pain or discomfort at this time. Due medications administered and tolerated well. Needs attended to promptly. Call light and frequently used items placed within reach. Maintained on fluid restriction.
[2019-04-25] MEDS: ACETAMINOPHEN 325 MG TABLET PO PRN (09:36)
[2019-04-25 16:36] VITALS: BP 123/61
--- NOTE | 2019-04-25 17:46 | NUR ---
Dr. Casas in the unit, informed MD regarding blood sugar of 417, per MD will look into it, no order at this time.
--- NOTE | 2019-04-25 19:30 | NUR ---
Patient alert and oriented x 3-4. Speaks with a slur and has a right sided facial droop. C/O pain in legs at time of assessment. Will give pain medication when able. Fluid Restrictions in place at 1300 mL per day with 300 mL till 0000. No SOB at this time. Call light and frequently used items within reach. Side rails up bilaterally for safety. Will continue to monitor.
[2019-04-25] MEDS: ATORVASTATIN 40 MG TABLET PO SCH (20:22)
[2019-04-25] MEDS: INSULIN GLARGINE,HUM 300 UNITS/3 ML CARTRIDGE SQ SCH (20:25)
[2019-04-25] MEDS: INSULIN REGULAR, HUMAN 300 UNITS/3 ML VIAL SQ PRN (20:25)
[2019-04-25 20:51] VITALS: BP 116/68
[2019-04-26] MEDS: HYDROCODONE/APAP 10-325 MG TABLET PO PRN ×3 (00:31→20:16)
[2019-04-26] MEDS: ALBUTEROL SULFATE 1.25 MG/3 ML NEBU NEB SCH ×4 (00:38→21:40)
[2019-04-26 05:31] VITALS: BP 118/61
[2019-04-26] MEDS: BLOOD SUGAR DIAGNOSTIC 1 EACH STRIP VI SCH ×4 (06:32→20:16)
[2019-04-26 07:55] VITALS: BP 118/64
[2019-04-26] MEDS: ASPIRIN EC 325 MG TABLET.DR PO SCH (08:58)
[2019-04-26] MEDS: FAMOTIDINE 20 MG TABLET PO SCH (08:59)
[2019-04-26] MEDS: GABAPENTIN 300 MG CAPSULE PO SCH ×3 (08:59→16:32)
[2019-04-26] MEDS: METOPROLOL SUCCINATE XL 25 MG TAB.SR.24H PO SCH (08:59)
--- NOTE | 2019-04-26 09:08 | NUR ---
Patient seen and examined by MD Elias, relayed sodium with 136 result. ordered discontinue fluid restriction. Continue therapy for ambulation and ADL ability. tolerated well. will continue monitor
[2019-04-26] MEDS: INSULIN REGULAR, HUMAN 300 UNIT/3 ML VIAL SQ PRN ×2 (11:16→16:35)
--- NOTE | 2019-04-26 15:37 | NUR ---
INTERDISCIPLINARY TEAM CONFERENCE
[2019-04-26] MEDS: ACETAMINOPHEN 325 MG TABLET PO PRN (16:32)
[2019-04-26 16:58] VITALS: BP 131/74
--- NOTE | 2019-04-26 19:30 | NUR ---
Patient alert and oriented x 3-4. Speaks with a slur and has a right sided facial droop. C/O pain in legs at time of assessment. Will give pain medication when able. No SOB at this time. Call light and frequently used items within reach. Discharge photos taken, and placed in chart. Side rails up bilaterally for safety. Call light and frequently used items within reach. Will continue to monitor.
[2019-04-26 20:13] VITALS: BP 126/72
[2019-04-26] MEDS: ATORVASTATIN 40 MG TABLET PO SCH (20:15)
[2019-04-26] MEDS: INSULIN REGULAR, HUMAN 300 UNITS/3 ML VIAL SQ PRN (20:17)
[2019-04-26] MEDS: INSULIN GLARGINE,HUM 300 UNITS/3 ML CARTRIDGE SQ SCH (20:18)
[2019-04-27] MEDS: HYDROCODONE/APAP 10-325 MG TABLET PO PRN ×3 (01:17→12:08)
[2019-04-27] MEDS: ALBUTEROL SULFATE 1.25 MG/3 ML NEBU NEB SCH ×3 (01:30→13:05)
[2019-04-27 05:40] VITALS: BP 106/77
[2019-04-27] MEDS: BLOOD SUGAR DIAGNOSTIC 1 EACH STRIP VI SCH ×2 (06:31→12:07)
[2019-04-27 08:00] VITALS: BP 140/62
[2019-04-27] MEDS: ASPIRIN EC 325 MG TABLET.DR PO SCH (08:11)
[2019-04-27] MEDS: GABAPENTIN 300 MG CAPSULE PO SCH ×2 (08:11→12:08)
[2019-04-27] MEDS: FAMOTIDINE 20 MG TABLET PO SCH (08:11)
[2019-04-27] MEDS: GUAIFENESIN SUGAR FREE 100 MG/5 ML UDC PO PRN (08:11)
[2019-04-27] MEDS: INSULIN REGULAR, HUMAN 300 UNIT/3 ML VIAL SQ PRN ×2 (08:13→12:15)
[2019-04-27 08:18] VITALS: BP 140/62
[2019-04-27] MEDS: METOPROLOL SUCCINATE XL 25 MG TAB.SR.24H PO SCH (08:18)
--- NOTE | 2019-04-27 10:00 | NUR ---
Patient noted resting in bed, took all AM medications, prn pain medication given by request for generalized pain, no signs of distress noted, call light in reach, bed locked and in lowest position, all needs met
--- NOTE | 2019-04-27 14:09 | NUR ---
[facility] at 1330 [facility], patient premedicated prior to transfer, no signs of distress noted, pictures taken by material handler 1st shift nurse, report called in to [facility], Exit care provided, all belongings accounted for, all discharge forms signed, MD Christianson made aware of patient discharge.
== END 2019-04-27 13:30 | DRG 57 ==
PROVIDERS: ADMIT Physical Medicine & Rehabilitation Pain Medicine; ATTEND Physical Medicine & Rehabilitation Pain Medicine
DX: I69.351 Hemiplegia and hemiparesis following cerebral infarction affecting right dominant side (principal); G93.40 Encephalopathy, unspecified; I69.398 Other sequelae of cerebral infarction; I69.322 Dysarthria following cerebral infarction; I69.391 Dysphagia following cerebral infarction; I69.319 Unspecified symptoms and signs involving cognitive functions following cerebral infarction; I69.392 Facial weakness following cerebral infarction; R13.10 Dysphagia, unspecified; E11.22 Type 2 diabetes mellitus with diabetic chronic kidney disease; E11.65 Type 2 diabetes mellitus with hyperglycemia; N18.3 Chronic kidney disease, stage 3 (moderate); I12.9 Hypertensive chronic kidney disease with stage 1 through stage 4 chronic kidney disease, or unspecified chronic kidney disease; I45.10 Unspecified right bundle-branch block; J45.909 Unspecified asthma, uncomplicated; F41.9 Anxiety disorder, unspecified; E11.40 Type 2 diabetes mellitus with diabetic neuropathy, unspecified; Z95.1 Presence of aortocoronary bypass graft; E78.5 Hyperlipidemia, unspecified; E11.51 Type 2 diabetes mellitus with diabetic peripheral angiopathy without gangrene; E87.5 Hyperkalemia; Z87.891 Personal history of nicotine dependence; Z98.61 Coronary angioplasty status; I95.9 Hypotension, unspecified; M79.604 Pain in right leg; Z82.49 Family history of ischemic heart disease and other diseases of the circulatory system; Z83.3 Family history of diabetes mellitus
CPT/HCPCS: 36415; 71045; 74230; 83735; 84100; 84300; 84443; 84550; 85025; 94640; 94664; A4663; J1815; J7614; Q0144